=== PATIENT | female | born 1965 | race Two or more races ===

== ENCOUNTER 2023-10-14 10:13 | Outpatient (CLI) | payer OTHER | END 2023-10-14 10:27 | disposition home or self-care (01) | LOC: RAD 10:13 | PROVIDERS: ATTEND Orthopaedic Surgery | DX: M25.531 Pain in right wrist (principal) ==

== ENCOUNTER 2023-11-21 15:17 | Outpatient (CLI) | payer OTHER | END 2023-11-21 15:30 | disposition home or self-care (01) | LOC: RAD 15:17 | PROVIDERS: ATTEND Orthopaedic Surgery | DX: M54.2 Cervicalgia (principal); M25.522 Pain in left elbow; M25.511 Pain in right shoulder ==

== ENCOUNTER 2023-11-24 12:37 | Outpatient (CLI) | payer OTHER | END 2023-11-24 12:45 | disposition home or self-care (01) | LOC: SONOGRAMA 12:37 | PROVIDERS: ATTEND Orthopaedic Surgery | DX: M25.511 Pain in right shoulder (principal) ==

== ENCOUNTER 2024-05-20 15:44 | Outpatient (CLI) | payer OTHER | END 2024-05-20 15:52 | disposition home or self-care (01) | LOC: RAD 15:44 | PROVIDERS: ATTEND Orthopaedic Surgery | DX: M25.531 Pain in right wrist (principal) ==

== ENCOUNTER → 2024-06-16 | Outpatient (CLI) | payer OTHER | END | disposition home or self-care (01) | LOC: RAD 15:16 | PROVIDERS: ATTEND Orthopaedic Surgery | DX: M54.2 Cervicalgia (principal) ==

== ENCOUNTER 2024-07-27 13:00 | Outpatient (CLI) | payer OTHER | END 2024-07-27 13:19 | disposition home or self-care (01) | LOC: NUCLEAR 13:00 | DX: M85.80 Other specified disorders of bone density and structure, unspecified site (principal); M81.0 Age-related osteoporosis without current pathological fracture ==

== ENCOUNTER 2024-08-03 10:40 | Outpatient (CLI) | payer OTHER | END 2024-08-03 10:43 | disposition home or self-care (01) | LOC: MRI 10:40 | PROVIDERS: ATTEND Orthopaedic Surgery | DX: M54.2 Cervicalgia (principal); M54.6 Pain in thoracic spine | CPT/HCPCS: 72141; 72146 ==

== ENCOUNTER 2024-08-24 13:55 | Outpatient (CLI) | payer OTHER | END 2024-08-24 14:06 | disposition home or self-care (01) | LOC: MRI 13:55 | PROVIDERS: ATTEND Orthopaedic Surgery | DX: M25.531 Pain in right wrist (principal) | CPT/HCPCS: 73221 ==

== ENCOUNTER 2025-02-16 16:43 | Emergency (ER) | payer OTHER ==
[~2025-02-16] VITALS: Ht 152.4 cm; Wt 53.5 kg
[2025-02-16 18:01] VITALS: BP 135/74; O2SAT 98
[2025-02-16] MEDS ORDERED: GLIPIZIDE XL10 MG (18:02)
[2025-02-16] MEDS ORDERED: SYNTHROID150 MCG PO (18:02)
[2025-02-16] MEDS ORDERED: LIPITOR80 MG PO (18:02)
[2025-02-16] MEDS ORDERED: LANTUS SOL100 UNIT/1 SQ (18:03)
[2025-02-16] MEDS ORDERED: TRADJENTA5 MG PO (18:03)
[2025-02-16] MEDS ORDERED: JARDIANCE10 MG PO (18:03)
[2025-02-16] MEDS ORDERED: HUMALOG100 UNIT/2 SQ (18:03)
[2025-02-16] MEDS ORDERED: ASACOL (18:05)
[2025-02-16] MEDS ORDERED: GEMFIBROZIL600 MG PO (18:06)
[2025-02-16] MEDS ORDERED: ZOFRAN8 MG (18:07)
[2025-02-16] MEDS ORDERED: LEVSIN0.125 MG (18:07)
[2025-02-16] MEDS ORDERED: PEPTO-BISM262 MG/15 (18:07)
[2025-02-16] MEDS ORDERED: PRILOSEC OTC20 MG (18:07)
[2025-02-16] MEDS ORDERED: TOPROL XL25 M1 (18:08)
[2025-02-16] MEDS ORDERED: VISTARIL50 MG/ML PO (18:08)
[2025-02-16] MEDS ORDERED: PROAIR RESPICL90 MCG (18:08)
[2025-02-16] MEDS ORDERED: FAMOTIDINE/PF 20 MG/2 ML VIAL IV STA (19:12)
[2025-02-16] MEDS ORDERED: CEFTRIAXONE SODIUM 1,000 MG VIAL IV ONE (19:15)
[2025-02-16] MEDS ORDERED: CEFTRIAXONE SODIUM 1,000 MG VIAL ONE (19:22)
[2025-02-16] MEDS ORDERED: FAMOTIDINE/PF 20 MG/2 ML VIAL ONE (19:22)
[2025-02-16 20:15] LABS: BASO % 0.6 % (0.1-1.2); EOS # 0.51 (0.04-0.54); EOS % 5.0 % (0.7-7.0); LYMPH # 2.92 (1.18-3.74); LYMPH % 28.9 % (19.3-53.1); MEAN PLATELET VOLUME 11.00 fl (9.4-12.4); MONO # 0.71 (0.24-0.82); MONO % 7.0 % (4.7-12.5); NEUT # 5.88 (1.56-6.13); NEUT % 58.1 % (34.0-71.1); RED CELL DISTRIBUTION WIDTH 13.0 % (11.6-14.4)
[2025-02-16 20:18] LABS: BUN CREA RATIO 22.0 (7.0-25.0); CREATININE SERUM 0.64 mg/dL (0.55-1.02); GFR 94.65; GLUCOSE FASTING 100.0 mg/dL (65-100); OSMOLALITY SERUM 286.0 MOSM/KG (275-295)
[2025-02-16 20:27] LABS: ERYTHROCYTE SEDIMENTATION RATE 38 mm/hr (0-30)
[2025-02-16 20:31] LABS: INR < 0.93
[2025-02-16] MEDS ORDERED: NAPROXEN500 MG PO (21:38)
[2025-02-16] MEDS ORDERED: AMOX1TAB5 PO (21:38)
== END 2025-02-16 21:50 | disposition home or self-care (01) ==
LOC: ER 16:43
PROVIDERS: General Practice
DX: J34.89 Other specified disorders of nose and nasal sinuses (principal); R51.9 Headache, unspecified; E11.9 Type 2 diabetes mellitus without complications; Z79.4 Long term (current) use of insulin; Z88.8 Allergy status to other drugs, medicaments and biological substances; Z91.018 Allergy to other foods